=== PATIENT | male | born 1960 | race Caucasian/White ===

== ENCOUNTER 2020-03-18 10:23 | Outpatient (CLI) | payer OTHER | END 2020-03-18 23:59 | disposition home or self-care (01) | LOC: CFH 10:23 | PROVIDERS: ATTEND Internal Medicine | DX: M25.562 Pain in left knee (principal); R07.2 Precordial pain | CPT/HCPCS: 71046 ==

== ENCOUNTER 2020-07-03 13:29 | Emergency (ER) | payer OTHER ==
[~2020-07-03] VITALS: Ht 180.3 cm; Wt 90.0 kg
[2020-07-03 13:33] VITALS: BP 125/77
== END 2020-07-03 14:10 | disposition home or self-care (01) ==
LOC: ED 14:00
DX: K08.89 Other specified disorders of teeth and supporting structures (principal)
CPT/HCPCS: 99283

== ENCOUNTER → 2020-09-15 | Outpatient (CLI) | payer OTHER | END | disposition home or self-care (01) | LOC: CFH 12:13 | PROVIDERS: ATTEND Internal Medicine | DX: M25.512 Pain in left shoulder (principal) ==